=== PATIENT | female | born 1995 | race Caucasian/White ===

== ENCOUNTER 2020-07-27 11:52 | Emergency (ER) | payer MEDICAID, SELFPAY ==
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
[2020-07-27 11:59] VITALS: BP 132/74; PULSE 84; RESP 18; TEMP 36.7; O2SAT 98
--- NOTE | 2020-07-27 12:22 | DI.RAD_ITS ---
Exam(s) XR HAND RT COMPLETE EXAM: XR HAND RT COMPLETE CLINICAL HISTORY: punched wall. TECHNIQUE: 2D digital imaging was performed. COMPARISON: No exams were available for comparison FINDINGS: No evidence of fracture or dislocation. No soft tissue a swelling. No radiopaque foreign body. No osseous lesions. IMPRESSION: No significant radiographic findings. DATA REPOSITORY: RADIATION DOSE DELIVERED:
--- NOTE | 2020-07-27 13:42 | DI.VRAD_ITS ---
PROCEDURE INFORMATION: Exam: XR Right Hand Exam date and time: 07/27/2020 12:06 PM Age: 24 years old Clinical indication: Hand; Right; Patient HX: Punched wall - pain 3-5 digits TECHNIQUE: Imaging protocol: XR Right hand. Views: 3 or more views. COMPARISON: No relevant prior studies available. FINDINGS: Bones/joints: Normal. Soft tissues: Normal. IMPRESSION: No significant abnormality. Dictated and Authenticated by: Ricky Deutsch MD. Ordering:SERJIO Maxwell MD
== END 2020-07-27 18:23 | disposition home or self-care (01) ==
LOC: ER 12:52
PROVIDERS: Emergency Provider Physician Assistant; PCP Nurse Practitioner Family
DX: S60.221A Contusion of right hand, initial encounter (principal); W22.01XA Walked into wall, initial encounter
CPT/HCPCS: 29125; 99283; 73130

== ENCOUNTER 2021-03-07 09:23 | Emergency (ER) | payer MEDICAID, SELFPAY ==
[2021-03-07] VITALS (18 sets, daily range): BP systolic 110–137; BP diastolic 73–84; PULSE 71–114; RESP 12–27; TEMP 36.6–36.9; O2SAT 99–100
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
[2021-03-07] MEDS: Normal Saline 1,000 ML 1000 ML IV (10:25)
[2021-03-07] MEDS: LORazepam 2 MG/ML VIAL 0.5 MG IVP (10:30)
[2021-03-07 10:32] LABS: Source Nasopharynx
[2021-03-07 10:33] LABS: Abs Immature Grans 0.03 10^3/uL (0.0-0.06); Absolute Basophil Count 0.04 10^3/uL (0.0-0.2); Absolute Eosinophil Count 0.02 10^3/uL (0.0-0.7); Absolute Lymphocyte Count 1.75 10^3/uL (1.2-3.4); Absolute Monocyte Count 0.37 10^3/uL (0.1-0.8); Basophils % 0.4; Eosinophils % 0.2; HCT 41.5 % (36.0-46.0); HGB 13.7 g/dL (11.2-15.7); Immature Grans % 0.3; Lymphocytes % 18.8; MCV 84.9 fL (80-95); MPV 9.6 fL (8.0-11.0); Neutrophils % 76.3; Nucleated RBC 0 %; Platelet Count 304 10^3/uL (130-400); RBC 4.89 10^6/uL (3.93-5.22); RDW 13.1 % (11.7-14.6); RDW-SD 40.3 fL; WBC 9.31 10^3/uL (4.4-10.8)
[2021-03-07 10:47] LABS: ALT 35 U/L (14-59); AST 24 U/L (15-37); Albumin 4.2 g/dL (3.4-5.0); Alkaline Phosphatase 105 U/L (46-116); Anion Gap 7.5 mmol/L (3-11); BUN 6 mg/dL (7-18); Bilirubin, Total 0.4 mg/dL (0.2-1.0); CO2 29.5 mmol/L (21.0-32.0); CREATININE 0.6 mg/dL (0.55-1.02); Calcium 9.6 mg/dL (8.5-10.1); Chloride 103 mmol/L (98-107); Glucose 110 mg/dL (74-106); Sodium 140 mmol/L (136-145); Total Protein 8.5 g/dL (6.4-8.2)
[2021-03-07] MEDS: cloNIDine 0.1 MG TAB PO (10:55)
[2021-03-07 11:15] LABS: Influenza A PCR Negative (Negative); Influenza B PCR Negative (Negative); RSV PCR Negative (Negative)
[2021-03-07 11:20] LABS: COVID-19 PCR POSITIVE (Negative)
--- NOTE | 2021-03-07 11:23 | NUR.NOTE ---
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
[2021-03-07] MEDS: Ketorolac 15 MG/ML VIAL IVP (11:30)
[2021-03-07] MEDS: Methadone Liquid 10 MG/ML 30 MG PO (14:27)
--- NOTE | 2021-03-09 07:37 | NUR.NOTE ---
At the request of [facility] counselor, Risa, and the patient in the background giving me her birthdate, I faxed the methadone order and the MAR start and stop times of the medication given to them. Divine Browning Nursing Note:
== END 2021-03-07 15:26 | disposition home or self-care (01) ==
PROVIDERS: Emergency Provider Nurse Practitioner Family; PCP Nurse Practitioner Family
DX: U07.1 COVID-19 (principal); F11.23 Opioid dependence with withdrawal; Z28.3 Underimmunization status; Z59.02 Unsheltered homelessness
CPT/HCPCS: 36415; 80053; 81025; 87637; 96361; 96374; 96375; 99283; 99284; 83735; 84443; 85025; J1885; J2060

== ENCOUNTER 2021-05-26 02:28 | Outpatient (CLI) | payer MEDICAID, SELFPAY ==
--- NOTE | 2021-05-26 09:15 | RT.EKG_ITS ---
APPROVED REPORT Exam: Resting ECG Reason for Exam: high risk med Patient Location: O HR:47 bpm ECG Measurements Heart Rate 47 AXIS NV 134 P -16 QRSd 96 QRS 79 QT 454 T 62 QTc 400 Conclusion Sinus bradycardia...rate< 60
== END 2021-05-26 02:29 | disposition home or self-care (01) ==
LOC: RT 02:29
PROVIDERS: PCP Nurse Practitioner Family; Visit Provider Family Medicine
DX: Z79.899 Other long term (current) drug therapy (principal)
CPT/HCPCS: 93005; 93010

== ENCOUNTER 2021-05-26 09:09 | Outpatient (RCR) | payer MEDICAID, SELFPAY | END 2021-06-06 23:59 | disposition home or self-care (01) | LOC: RT 09:09 | PROVIDERS: PCP Nurse Practitioner Family; Visit Provider Family Medicine | DX: R69 Illness, unspecified (principal) | CPT/HCPCS: 93005; 93010 ==

== ENCOUNTER 2021-12-31 17:18 | Emergency (ER) | payer MEDICAID, SELFPAY ==
[2021-12-31 17:21] VITALS: BP 127/76; PULSE 104; RESP 16; TEMP 36.9; O2SAT 99
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
[2021-12-31] MEDS: Clindamycin 150 MG CAP 450 MG PO (17:54)
[2021-12-31] MEDS: Clindamycin 150 MG CAP, 12 CAPS/BTL 450 MG PO (17:54)
== END 2021-12-31 17:54 | disposition home or self-care (01) ==
PROVIDERS: Emergency Provider Nurse Practitioner Family; PCP Nurse Practitioner Family
DX: K04.7 Periapical abscess without sinus (principal)
CPT/HCPCS: 99283

== ENCOUNTER 2022-01-02 22:03 | Emergency (ER) | payer MEDICAID, SELFPAY ==
[2022-01-02 22:41] VITALS: BP 101/60; PULSE 100; RESP 15; O2SAT 100
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
[2022-01-02] MEDS: Clindamycin 150 MG CAP, 12 CAPS/BTL 450 MG PO (22:54)
[2022-01-02] MEDS: Clindamycin 150 MG CAP 450 MG PO (23:04)
== END 2022-01-02 23:02 | disposition home or self-care (01) ==
PROVIDERS: Emergency Provider Registered Nurse Emergency; PCP Nurse Practitioner Family
DX: K04.7 Periapical abscess without sinus (principal); Z76.0 Encounter for issue of repeat prescription; R22.0 Localized swelling, mass and lump, head; F17.210 Nicotine dependence, cigarettes, uncomplicated
CPT/HCPCS: 99283